=== PATIENT | male | born 1955 | race Caucasian/White ===

== ENCOUNTER 2017-10-22 02:25 | Emergency (ER) | payer SELFPAY ==
[~2017-10-22] VITALS: Ht 185.4 cm; Wt 84.1 kg
[2017-10-22] MEDS ORDERED: ONDANSETRON ODT 4 MG PO ONE (02:30)
[2017-10-22] MEDS ORDERED: HYDROmorphone 2 MG/ML, 1ML IVPush PRN (02:30)
[2017-10-22] MEDS ORDERED: PROMETHAZINE 25 MG/ML, 1ML IM ONE (02:30)
[2017-10-22] MEDS ORDERED: SODIUM CHLORIDE FLUSH 10ML SYR IVF ONE (02:30)
[2017-10-22] MEDS ORDERED: FAMOTIDINE 20 MG/2 ML IVP ONE (02:30)
[2017-10-22] MEDS ORDERED: OMEP20TA62 PO (02:35)
[2017-10-22 02:42] LABS: BASOPHILS # (AUTO) 0.01 x10^3/uL (0-0.1); BASOPHILS % (AUTO) 0 % (0-1); EOSINOPHILS # (AUTO) 0.05 x10^3/uL (0-0.4); EOSINOPHILS % (AUTO) 1 % (1-7); LYMPHOCYTES # (AUTO) 0.84 x10^3/uL (1-3.4); LYMPHOCYTES % (AUTO) 10 % (22-44); MD NO; MEAN CORPUSCULAR HEMOGLOBIN 33.6 pg (27.5-34.5); MEAN CORPUSCULAR HGB CONC 34.5 g/dL (33.2-36.2); MEAN CORPUSCULAR VOLUME 97.4 fL (81-97); MEAN PLATELET VOLUME 7.8 fL (7.4-10.4); MONOCYTES # (AUTO) 0.56 x10^3/uL (0.2-0.8); MONOCYTES % (AUTO) 7 % (2-9); NEUTROPHILS # (AUTO) 6.75 x10^3/uL (1.8-6.8); NEUTROPHILS % (AUTO) 82 % (42-75); PLATELET COUNT 208 x10^3/uL (130-400); RED BLOOD COUNT 4.66 x10^6/uL (4.38-5.82); RED CELL DISTRIBUTION WIDTH 14.1 % (9.4-14.8)
[2017-10-22 02:52] LABS: ALANINE AMINOTRANSFERASE 20 U/L (12-78); ANION GAP 9 mmol/L (5-15); CALCIUM 9.3 mg/dL (8.5-10.1); CHLORIDE 107 mmol/L (98-107)
[2017-10-22 02:55] LABS: ALKALINE PHOSPHATASE 73 U/L (45-117); BILIRUBIN,TOTAL 0.8 mg/dL (0.2-1.0); CREATININE 1.12 mg/dL (0.7-1.3); TOTAL PROTEIN 7.6 g/dL (6.4-8.2)
[2017-10-22] MEDS ORDERED: PROMETHAZINE 25 MG/ML, 1ML ONE (03:05)
[2017-10-22] MEDS ORDERED: ONDANSETRON ODT 4 MG ONE (03:05)
[2017-10-22] MEDS ORDERED: FAMOTIDINE 20 MG/2 ML ONE (03:05)
[2017-10-22 03:28] LABS: TROPONIN I < 0.015 ng/mL (0.000-0.045)
[2017-10-22] MEDS ORDERED: HYDROmorphone 2 MG/ML, 1ML ONE (03:29)
[2017-10-22 03:45] LABS: MICROSCOPIC NOT IND
[2017-10-22 03:51] LABS: CULTURE INDICATED? NO
[2017-10-22 04:45] VITALS: BP 155/90
== END 2017-10-22 04:46 | disposition home or self-care (01) ==
LOC: ED 03:55
DX: K80.20 Calculus of gallbladder without cholecystitis without obstruction (principal); F17.200 Nicotine dependence, unspecified, uncomplicated; R11.2 Nausea with vomiting, unspecified
CPT/HCPCS: 36415; 71045; 76700; 80053; 81003; 83690; 84484; 85025; 93005; 99285; J1170; J2550; Q0162; S0028

== ENCOUNTER 2018-07-01 13:04 | Emergency (ER) | payer SELFPAY ==
[~2018-07-01] VITALS: Ht 185.4 cm; Wt 82.0 kg
[~2018-07-01 13:04] MED LIST: OMEP20TA62 PO
[2018-07-01] MEDS ORDERED: OMEPRAZOLE PO (13:14)
--- NOTE | 2018-07-01 13:17 | NUR ---
REPORT RECEIVED FROM EMS. PT BIBA FOR C/O LEFT SIDED CHEST PAIN STARTING THIS AM, RATES AT 10. DENIES RADIATING PAIN, DENIES SOB, DENIES NAUSEA. EKG TAKEN ON ARRIVAL BY EDT. PT PLACED ON ALL MONITORS, CALL LIGHT IN REACH. PT STATES HE TOOK 162 MG ASA RN MANAGED CARE. [facility] PT AWAITING LAB[facility] AND CXR AT THIS TIME.
[2018-07-01] MEDS ORDERED: SODIUM CHLORIDE FLUSH 10ML SYR IVF ONE (13:30)
[2018-07-01] MEDS ORDERED: ASPIRIN 81 MG TABLET CHEW PO ONE (13:30)
[2018-07-01 13:37] LABS: BASOPHILS # (AUTO) 0.03 x10^3/uL (0-0.1); BASOPHILS % (AUTO) 1 % (0-1); EOSINOPHILS # (AUTO) 0.13 x10^3/uL (0-0.4); EOSINOPHILS % (AUTO) 3 % (1-7); LYMPHOCYTES # (AUTO) 0.99 x10^3/uL (1-3.4); LYMPHOCYTES % (AUTO) 19 % (22-44); MD NO; MEAN CORPUSCULAR HEMOGLOBIN 33.3 pg (27.5-34.5); MEAN CORPUSCULAR HGB CONC 34.2 g/dL (33.2-36.2); MEAN CORPUSCULAR VOLUME 97.6 fL (81-97); MEAN PLATELET VOLUME 7.8 fL (7.4-10.4); MONOCYTES # (AUTO) 0.44 x10^3/uL (0.2-0.8); MONOCYTES % (AUTO) 8 % (2-9); NEUTROPHILS # (AUTO) 3.69 x10^3/uL (1.8-6.8); NEUTROPHILS % (AUTO) 70 % (42-75); PLATELET COUNT 213 x10^3/uL (130-400); RED BLOOD COUNT 4.47 x10^6/uL (4.38-5.82); RED CELL DISTRIBUTION WIDTH 14.4 % (9.4-14.8)
[2018-07-01 13:44] LABS: ALANINE AMINOTRANSFERASE 15 U/L (12-78); ALBUMIN 3.7 g/dL (3.4-5.0); ANION GAP 5 mmol/L (5-15); CALCIUM 8.3 mg/dL (8.5-10.1); CHLORIDE 115 mmol/L (98-107); CREATININE 0.97 mg/dL (0.7-1.3)
[2018-07-01 13:49] LABS: ALKALINE PHOSPHATASE 70 U/L (45-117); BILIRUBIN,TOTAL 0.4 mg/dL (0.2-1.0); TOTAL PROTEIN 6.6 g/dL (6.4-8.2); TROPONIN I < 0.015 ng/mL (0.000-0.045)
--- NOTE | 2018-07-01 14:17 | NUR ---
ERP SAHM AT BEDSIDE TO UPDATE PT WITH RESULTS AND POC. PT A&O, RESPS EVEN AND UNLABORED, ZARA.
[2018-07-01 15:02] VITALS: BP 119/80
--- NOTE | 2018-07-01 15:03 | NUR ---
pt given dc instructions. pt a&o, resps even and unlabored, nadn. pt had no complaint at dc. pt amb to dc desk with steady gait, provided with cab voucher at request.
== END 2018-07-01 15:03 | disposition home or self-care (01) ==
LOC: ED 14:32
DX: I49.3 Ventricular premature depolarization (principal); R07.89 Other chest pain; K21.9 Gastro-esophageal reflux disease without esophagitis; F17.200 Nicotine dependence, unspecified, uncomplicated
CPT/HCPCS: 36415; 71045; 80053; 84484; 85025; 93005; 99284

== ENCOUNTER 2020-10-03 16:37 | Emergency (ER) | payer SELFPAY ==
[~2020-10-03] VITALS: Ht 188 cm; Wt 79.5 kg
[~2020-10-03 16:37] MED LIST changes: +OMEPRAZOLE PO
[2020-10-03] MEDS ORDERED: SODIUM CHLORIDE 0.9% 1,000ML IVBOLUS ONE (18:00)
[2020-10-03 18:10] LABS: ALBUMIN 3.3 g/dL (3.4-5.0); ANION GAP 5 mmol/L (5-15); CALCIUM 8.2 mg/dL (8.5-10.1); CHLORIDE 105 mmol/L (98-107)
[2020-10-03 18:12] LABS: BASOPHILS % (AUTO) 1 % (0-1); EOSINOPHILS % (AUTO) 1 % (1-7); LYMPHOCYTES % (AUTO) 12 % (22-44); MEAN CORPUSCULAR HEMOGLOBIN 32.3 pg (27.5-34.5); MEAN CORPUSCULAR HGB CONC 33.8 g/dL (33.2-36.2); MEAN PLATELET VOLUME 7.7 fL (7.4-10.4); MONOCYTES % (AUTO) 14 % (2-9); NEUTROPHILS % (AUTO) 72 % (42-75); PLATELET COUNT 192 x10^3/uL (130-400); RED BLOOD COUNT 4.21 x10^6/uL (4.38-5.82); RED CELL DISTRIBUTION WIDTH 14.7 % (9.4-14.8)
[2020-10-03 18:15] LABS: ALANINE AMINOTRANSFERASE 21 U/L (12-78); ALKALINE PHOSPHATASE 70 U/L (45-117); BILIRUBIN,TOTAL 0.5 mg/dL (0.2-1.0); CREATININE 0.89 mg/dL (0.7-1.3); TOTAL PROTEIN 6.7 g/dL (6.4-8.2)
--- NOTE | 2020-10-03 18:17 | NUR ---
PT RESTING IN GURNEY, AWAKENS EASILY, NO S/S OF DISTRESS. IV STARTED, BOLUS INFUSING. PT UNDERSTANDS POC.
--- NOTE | 2020-10-03 18:38 | NUR ---
ERP AT FOR RECHECK.
[2020-10-03 19:00] VITALS: BP 111/80
--- NOTE | 2020-10-03 19:30 | NUR ---
MEAL TRAY PROVIDED TO PT. D/C INSTRUCTIONS, MEDS & F/U APPT RV'WD WITH PT. RX GIVEN X2. INSTRUCTED PT TO RETURN TO ED FOR SOB, CP, OR ANY CONCERNING SYMPTOMS. AMBULATED OUT OF ED WITHOUT DIFFICULTY. INSTRUCTIONS & PHONE PROVIDED TO PT FOR [facility]TM TRANSPORTATION.
== END 2020-10-03 20:02 | disposition home or self-care (01) ==
LOC: ED 19:35
DX: M79.10 Myalgia, unspecified site (principal); R05 Cough; F17.210 Nicotine dependence, cigarettes, uncomplicated; R94.31 Abnormal electrocardiogram [ECG] [EKG]; K21.9 Gastro-esophageal reflux disease without esophagitis
CPT/HCPCS: 36415; 71045; 80053; 85025; 93005; 96360; 99285; 99406; J7030; 99284